=== PATIENT | female | born 1990 | race Caucasian/White ===

== ENCOUNTER → 2016-04-23 | Outpatient (REF) | payer OTHER | LOC: M SFHCWAGY 11:16 | PROVIDERS: ATTEND Nurse Practitioner Family | DX: Z12.4 Encounter for screening for malignant neoplasm of cervix (principal) ==

== ENCOUNTER → 2016-06-18 | Outpatient (REF) | payer OTHER | LOC: M SFHCCLAY 16:21 | PROVIDERS: ATTEND Family Medicine | DX: J02.9 Acute pharyngitis, unspecified (principal) ==

== ENCOUNTER → 2017-06-03 | Outpatient (REF) | payer OTHER | LOC: M LAB REF 17:12 | DX: Z34.83 Encounter for supervision of other normal pregnancy, third trimester (principal) | CPT/HCPCS: 87081 ==

== ENCOUNTER 2017-06-13 16:17 | Outpatient (CLI) | payer OTHER | END 2017-06-13 17:10 | disposition home or self-care (01) | LOC: M LDO 16:17 | DX: O47.1 False labor at or after 37 completed weeks of gestation (principal); Z3A.38 38 weeks gestation of pregnancy | CPT/HCPCS: 59025 ==

== ENCOUNTER 2017-06-22 06:49 | Inpatient (IN) | payer OTHER ==
[2017-06-22 08:31] LABS: HEMATOCRIT 34.3 % (36.0-47.0); HEMOGLOBIN 12.2 g/dl (12.0-15.5); MEAN CORPUSCULAR HEMOGLOBIN 32.6 pg (27.0-33.0); MEAN CORPUSCULAR HGB CONC 35.6 g/dl (32.0-36.5); MEAN CORPUSCULAR VOLUME 91.7 fl (80.0-96.0); PLATELET COUNT, AUTOMATED 174 10^3/uL (150-450); RED BLOOD COUNT 3.74 10^6/uL (4.00-5.40); RED CELL DISTRIBUTION WIDTH 12.3 % (11.5-14.5); WHITE BLOOD COUNT 8.7 10^3/uL (4.0-10.0)
[2017-06-22] MEDS: miSOPROStol 50 MCG 1/2 TAB (S0191) PO ×2 (08:33→12:51)
[2017-06-22 11:16] LABS: BEDSIDE GLUCOSE 89 MG/DL (70-105)
[2017-06-22 15:43] LABS: BEDSIDE GLUCOSE 103 MG/DL (70-105)
[2017-06-22] MEDS ORDERED: OXYTOCIN DRIP 30 UNITS in APPROPRIATE DILUENT 1 EA IV (17:00)
[2017-06-22] MEDS: LR 1,000 ML IV (17:41)
[2017-06-22] MEDS ORDERED: FENTANYL 2MCG/ML ROPIVACAINE 0.2% IN 0.9% NACL 200ML IVBAG As Ordered (18:09)
[2017-06-22] MEDS: OXYTOCIN DRIP 30 UNITS in APPROPRIATE DILUENT 1 EA IV ×2 (19:59→20:30)
[2017-06-22] MEDS ORDERED: diphenhydrAMINE INJ 50MG/ML VIAL (J1200) IV (20:15)
[2017-06-22] MEDS ORDERED: EPIDURAL/PCA KEYS XX (20:15)
[2017-06-22] MEDS ORDERED: EPIDURAL COMMENT XX (20:15)
[2017-06-22] MEDS: miSOPROStol 200 MCG TAB (S0191) PR (20:15)
[2017-06-22] MEDS: METHYLERGONOVINE MALEATE 0.2 MG/ML VIAL (J2210) IM (20:15)
[2017-06-22] MEDS ORDERED: FENTANYL/ROPIVACAINE/NACL BAG 200 ML EPIDURAL (20:15)
[2017-06-22] MEDS ORDERED: ONDANSETRON 4MG/2ML VIAL (J2405) IV (20:15)
[2017-06-22] MEDS ORDERED: REFRIGERATOR IV KEYS XX (20:15)
[2017-06-22] MEDS ORDERED: NALOXONE INJ 0.4 MG/1 ML VIAL (J2310) IV (20:15)
[2017-06-22] MEDS ORDERED: RHOGAM 300 MCG (1500 IU) INJ (J2790) IM (21:00)
[2017-06-22] MEDS ORDERED: ACETAMINOPHEN 500 MG TAB PO (21:00)
[2017-06-22] MEDS ORDERED: MEASLES,MUMPS,RUBELLA VACCINE INJ (MMR-II) (90707) SC (21:00)
[2017-06-22] MEDS ORDERED: DIBUCAINE 1% OINTMENT 30GM TOP (21:00)
[2017-06-22] MEDS ORDERED: DOCUSATE SODIUM 100 MG CAP PO (21:00)
[2017-06-22] MEDS ORDERED: ANUSOL HC CREAM 30GM TOP (21:00)
[2017-06-22] MEDS ORDERED: MOM 30ML SUSPENSION UDC PO (21:00)
[2017-06-22] MEDS: IBUPROFEN 800 MG TAB PO (21:10)
[2017-06-23] MEDS ORDERED: METHYLERGONOVINE MALEATE 0.2 MG TAB PO (01:00)
[2017-06-23] MEDS: PRENATAL VITAMINS CHEWABLE TABLET PO (09:00)
[2017-06-23] MEDS: IBUPROFEN 800 MG TAB PO (18:11)
[2017-06-24] MEDS: PRENATAL VITAMINS CHEWABLE TABLET PO (07:58)
== END 2017-06-24 11:05 | disposition home or self-care (01) | DRG 774 ==
LOC: M LDI 06:49 → M OBS 22:17
PROVIDERS: Obstetrics & Gynecology
PROC: 10E0XZZ Delivery of Products of Conception, External Approach (ICD-10-PCS; principal; 2017-06-22)
PROC: 3E0DXGC Introduction of Other Therapeutic Substance into Mouth and Pharynx, External Approach (ICD-10-PCS; 2017-06-22)
DX: O24.429 Gestational diabetes mellitus in childbirth, unspecified control (principal); O72.1 Other immediate postpartum hemorrhage; Z37.0 Single live birth; Z3A.39 39 weeks gestation of pregnancy

== ENCOUNTER → 2018-04-18 | Outpatient (REF) | payer OTHER ==
[~2018-04-18] MED LIST: IBUP-1114 PO; MAPA500T2 PO; PRENTAB9 PO
== END ==
LOC: M LAB REF 17:34
PROVIDERS: ATTEND Obstetrics & Gynecology
DX: Z12.4 Encounter for screening for malignant neoplasm of cervix (principal)

== ENCOUNTER 2018-07-19 10:08 | Emergency (ER) | payer OTHER ==
[~2018-07-19] VITALS: Ht 167.6 cm; Wt 58.6 kg
[~2018-07-19 10:08] MED LIST changes: -24Hr Holter Monitor XX; -PREVTAB2
[2018-07-19] MEDS ORDERED: PREVTAB2 (10:16)
[2018-07-19 11:07] LABS: HEMATOCRIT 36.9 % (36.0-47.0); HEMOGLOBIN 12.3 g/dl (12.0-15.5); MEAN CORPUSCULAR HEMOGLOBIN 30.1 pg (27.0-33.0); MEAN CORPUSCULAR HGB CONC 33.3 g/dl (32.0-36.5); MEAN CORPUSCULAR VOLUME 90.2 fl (80.0-96.0); PLATELET COUNT, AUTOMATED 234 10^3/uL (150-450); RED BLOOD COUNT 4.09 10^6/uL (4.00-5.40); WHITE BLOOD COUNT 5.2 10^3/uL (4.0-10.0)
[2018-07-19 11:31] LABS: HCG, SERUM QUALITATIVE NEGATIVE (NEGATIVE)
[2018-07-19 11:36] LABS: BLOOD UREA NITROGEN 9 MG/DL (7-18); CALCIUM LEVEL 9.2 MG/DL (8.5-10.1); CARBON DIOXIDE LEVEL 25 MEQ/L (21-32); CHLORIDE LEVEL 109 MEQ/L (98-107); CREATININE FOR GFR 0.73 MG/DL (0.55-1.30); GLOMERULAR FILTRATION RATE > 60.0 (>60); GLUCOSE, FASTING 100 MG/DL (70-100); POTASSIUM SERUM 3.9 MEQ/L (3.5-5.1); SODIUM LEVEL 141 MEQ/L (136-145)
[2018-07-19] MEDS ORDERED: ISOVUE-370 76% 100ML VIAL (Q9967) As Ordered ONE (11:55)
--- NOTE | 2018-07-19 13:37 | REP ---
Clinical: Acute chest pain and tachycardia. Technique: Axial contrast enhanced images from the thoracic inlet to the upper abdomen using 100 ml Isovue 370 intravenous contrast material with coronal and sagittal re-formations. Findings: Satisfactory enhancement of the pulmonary vasculature is achieved and no filling defects are identified to suggest pulmonary embolus. Thoracic aorta is normal caliber without aneurysm or dissection. Heart and pericardium are normal. Bilateral lung antonio are well aerated and clear without acute pulmonary parenchymal consolidation or atelectasis. No nodule or mass lesion. No pleural effusion/reaction. No pneumothorax. No adenopathy. Impression: No evidence for pulmonary embolus. No acute pleuroparenchymal or mediastinal process. Electronically Signed by Jeff Dahl MD 07/19/2018 01:29 P
[2018-07-19] MEDS ORDERED: 24Hr Holter Monitor XX (13:59)
[2018-07-19 14:15] VITALS: BP 106/58
--- NOTE | 2018-07-19 19:40 | ECGEPIP ---
[facility] - ED Test Date: 2018-07-19 Pat Name: LISSY NAVA Department: Room: - Gender: Female Gage Designer: : 1990 Requested By: Ariel Swain Order Number: [id number] Reading MD: Goran Gunn Measurements Intervals [place] Rate: 94 P: 45 NH: 141 QRS: 64 QRSD: 92 T: 18 QT: 348 QTc: 437 Interpretive Statements SINUS RHYTHM WITH SINUS ARRHYTHMIA Low QRS complex voltage in the limb leads Nonspecific ST-T wave abnormalities Comparison tracing not on file Electronically Signed on 07-19-2018 19:39:54 EDT by Goran Gunn
== END 2018-07-19 14:42 | disposition home or self-care (01) ==
LOC: M ED 10:08
DX: R00.2 Palpitations (principal); F41.9 Anxiety disorder, unspecified; F42.9 Obsessive-compulsive disorder, unspecified; Z79.3 Long term (current) use of hormonal contraceptives
CPT/HCPCS: 71275; 80048; 84443; 84703; 85027; 93005; 99284; Q9967

== ENCOUNTER → 2018-07-19 | Outpatient (CLI) | payer OTHER ==
[~2018-07-19] MED LIST changes: +24Hr Holter Monitor XX; +PREVTAB2
--- NOTE | 2018-07-23 13:04 | HOLTMON ---
[facility] Test Date: 2018-07-19 Pat Name: LISSY NAVA Department: Room: - Gender: Female Strategic Communications Manager: Alise Casey/MARGARITA CUEVA : 1990 Requested By: Ariel Swain Order Number: [id number] Reading MD: Linwood Hayes Interpretive Statements Patient was monitored for 24hours and 50 minutes starting on 07/19/18. 23 hours and 38 minutes were usable for analysis. Baseline mechanism was sinus rhythm with normal AV conduction and narrow QRS complex. Minimum HR was 57 bpm, average HR 82 bpm and maximum HR 145 bpm. There were no pauses, no PVC's, 1 PAC and no episodes of a atrial fibrillation. Patient reported 4 episodes of "dizziness and palpitations" corresponding to sinus rhythm or sinus tachycardia (max. HR 120 bpm). Normal Holter monitor. No correlation of symptoms with arrhythmias. Electronically Signed on 07-23-2018 13:04:35 EDT by Linwood Hayes
== END ==
LOC: M EKG 14:47
PROVIDERS: ATTEND Emergency Medicine
DX: R00.2 Palpitations (principal)

== ENCOUNTER → 2019-05-22 | Outpatient (REF) | payer OTHER ==
[~2019-05-22] MED LIST changes: +24Hr Holter Monitor XX; +PREVTAB2
[2019-05-22 11:40] LABS: THYROXINE (T4) 9.5 UG/DL (4.5-12.0); TOTAL T3 96.8 NG/DL (60.0-181.0)
[2019-05-23 11:05] LABS: THYROID PEROXIDASE ANTIBODY < 28.0 U/ML (<60.0)
== END ==
LOC: M SFHCCLAY 07:51
PROVIDERS: ATTEND Family Medicine
DX: R79.89 Other specified abnormal findings of blood chemistry (principal)

== ENCOUNTER → 2020-01-16 | Outpatient (CLI) | payer OTHER ==
--- NOTE | 2020-01-16 09:47 | REP ---
INDICATION: ANATOMY COMPARISON: None. TECHNIQUE: Transabdominal obstetrical ultrasound with color Doppler evaluation. FINDINGS: Examination demonstrates a single live intrauterine in cephalic presentation. motion is identified by technologist. Placenta is noted anterior and grade 1 without evidence for placenta previa or abruption. Amniotic fluid volume is normal. Cervix measures 4.9 cm in length and appears closed.. Gestational age by LMP 20 weeks 3 days with MATTHEW 06/01/2020. Gestational age by current measurements 21 weeks 2 days with MATTHEW 05/26/2020. FHR equals 163 beats per minute. BPD: 5.1 cm 21 weeks 3 days HC: 18.7 cm 21 weeks 0 days AC: 16.2 cm 21 weeks 2 days FL: 3.6 cm 21 weeks 3 days HL: 3.3 cm 21 weeks 2 days HC/AC: 1.15 Estimated weight 413 grams (89thpercentile). Anatomical assessment demonstrates normal structures including cranium, choroid plexus, cavum, cerebellum/posterior fossa, facial features, lungs, four-chamber heart/ventricular outflow tracts, diaphragm, stomach, cord insertion/three-vessel cord, kidneys/bladder, spine, and extremities. IMPRESSION: Single live intrauterine in cephalic presentation demonstrating appropriate estimated weight. Anatomical assessment is complete and normal. <Electronically signed by Jeff Dahl > 01/16/20 [id number]
== END ==
LOC: M WHC 08:36
PROVIDERS: ATTEND Advanced Practice Midwife
DX: O09.291 Supervision of pregnancy with other poor reproductive or obstetric history, first trimester (principal); Z3A.20 20 weeks gestation of pregnancy

== ENCOUNTER → 2020-05-08 | Outpatient (REF) | payer OTHER | LOC: M PLALAB 13:32 | PROVIDERS: ATTEND Obstetrics & Gynecology | DX: Z3A.36 36 weeks gestation of pregnancy (principal) ==

== ENCOUNTER → 2020-05-22 | Outpatient (REF) | payer OTHER ==
[2020-05-22 13:53] LABS: HEMATOCRIT 34.1 % (36.0-47.0); HEMOGLOBIN 10.7 g/dl (12.0-15.5); MEAN CORPUSCULAR HEMOGLOBIN 28.6 pg (27.0-33.0); MEAN CORPUSCULAR HGB CONC 31.4 g/dl (32.0-36.5); MEAN CORPUSCULAR VOLUME 91.2 fl (80.0-96.0); PLATELET COUNT, AUTOMATED 202 10^3/uL (150-450); RED BLOOD COUNT 3.74 10^6/uL (4.00-5.40); WHITE BLOOD COUNT 9.3 10^3/uL (4.0-10.0)
[2020-05-22 14:05] LABS: ALT/SGPT 17 U/L (12-78); BILIRUBIN,TOTAL 0.4 MG/DL (0.2-1.0); CREATININE FOR GFR 0.58 MG/DL (0.55-1.30); GLOMERULAR FILTRATION RATE > 60.0 (>60); LDH LACTATE DEHYDROGENASE 184 U/L (84-246); URIC ACID 3.1 MG/DL (2.6-6.0)
[2020-05-22 14:29] LABS: CREATININE,RANDOM URINE 20.9 MG/DL; TOTAL PROTEIN,RANDOM URINE 6.3 MG/DL (0.0-12.0)
== END ==
LOC: M PLALAB 11:49
PROVIDERS: ATTEND Advanced Practice Midwife
DX: O12.03 Gestational edema, third trimester (principal)

== ENCOUNTER 2020-05-25 10:03 | Inpatient (IN) | payer OTHER ==
[2020-05-25] VITALS (32 sets, daily range): BP systolic 113–148; BP diastolic 61–84
[~2020-05-25] VITALS: Ht 167.6 cm; Wt 80.0 kg
[2020-05-25] MEDS ORDERED: METHYLERGONOVINE MALEATE 0.2 MG/ML VIAL (J2210) IM PRN (10:25)
[2020-05-25] MEDS ORDERED: TRANEXAMIC ACID INJection 1,000 MG in NS 100 ML IV PRN (10:25)
[2020-05-25] MEDS ORDERED: LIDOCAINE 1% MDV 20ML VIAL INFIL PRN (10:25)
[2020-05-25] MEDS ORDERED: CARBOPROST TROMETHAMINE 250 MCG/ML AMP IM PRN (10:25)
[2020-05-25] MEDS ORDERED: OXYTOCIN DRIP 30 UNITS in IV 1 EA IV PRN ×6 (10:25)
[2020-05-25] MEDS ORDERED: OXYTOCIN INJ 10 UNITS/ML VIAL (J2590) IV PRN (10:25)
[2020-05-25] MEDS ORDERED: OXYTOCIN INJ 10 UNITS/ML VIAL (J2590) IM PRN (10:25)
[2020-05-25] MEDS ORDERED: LACTATED RINGER'S 1000 ML IV STA (10:25)
[2020-05-25] MEDS ORDERED: PRENTAB9 PO (10:31)
--- NOTE | 2020-05-25 10:44 | HPEPDOC ---
Obstetrical History & Physical General Date of Admission May 25, 2020 at 10:03 History of Present Illness 29-year-old at 39+0 weeks gestation. Presents for an induction of labor. Indication for induction: Elective She denies vaginal bleeding, loss of fluid or painful, frequent uterine contractions. She reports regular movement. She denies headache, visual changes, right upper quadrant pain, shortness of breath or chest pain. course: Uncomplicated PMH: Anxiety, OCD SH:,[place]green teeth, local excision from left pinna/ear Meds: vitamin All: NKDA SOCIETY EDITOR: No STI or dysplasia OB: Term at 39 weeks, 7 lbs. 1 oz., complicated by GDM (2018) Sochx: No tobacco, alcohol or drug use FamHx: Psych/anxiety, hypertension, hyperlipidemia labs: Blood type A+, antibody screen negative, HepBsAg neg, HIV neg, rubella immune, Hep C antibody negative, RPR nonreactive, CT/GC neg, urine culture negative, 1 hour glucose challenge test wnl , GBS negative Imaging: no placental abnormalities or anomalies Past Medical History Allergies Coded Allergies: No Known Allergies (Unverified , 07/19/18) Medications Miscellaneous Medications Norgestimate-Ethinyl Estradiol (Previfem Tablet) 1 Each Tablet Physical Examination Physical Examination GENERAL: Alert and oriented times three. BREAST: . ABDOMEN: Gravid and non-tender to touch. FETUS: Is vertex (VTX) by sterile vaginal examination (SVE), fetus is vertex ( VTX) by John. HEART RATE: Regular rate and rhythm. LUNGS: Clear to auscultation (CTA). EXTREMITIES: No edema. No clonus. SVE: 4/75%/-3, cephalic, intact membranes. EFM: Cat I [place]: irreg ctxs Assessment/Plan Assessment 29yo at 39+0 weeks. Reassuring maternal and status. Elective IOL; favorable cervix. Plan Admit and orient. Frog Shaker and consent. Group B Streptococcus (GBS) negative Labs and intravenous (IV) per unit protocol. Counseled on induction of labor (IOL); Pitocin low dose protocol Anticipate [normal spontaneous delivery ()]. C-S as appropriate. NAFISA PEREZ DO May 25, 2020 10:44
[2020-05-25] MEDS ORDERED: OXYTOCIN DRIP 30 UNITS in IV 1 EA IV SCH ×2 (10:45→21:49)
[2020-05-25 11:40] LABS: HEMATOCRIT 32.6 % (36.0-47.0); HEMOGLOBIN 10.4 g/dl (12.0-15.5); MEAN CORPUSCULAR HEMOGLOBIN 28.5 pg (27.0-33.0); MEAN CORPUSCULAR HGB CONC 31.9 g/dl (32.0-36.5); MEAN CORPUSCULAR VOLUME 89.3 fl (80.0-96.0); PLATELET COUNT, AUTOMATED 195 10^3/uL (150-450); RED BLOOD COUNT 3.65 10^6/uL (4.00-5.40); WHITE BLOOD COUNT 7.8 10^3/uL (4.0-10.0)
[2020-05-25] MEDS: LR 1,000 ML IV SCH ×2 (11:45→15:07)
[2020-05-25] MEDS ORDERED: FENTANYL 2MCG/ML ROPIVACAINE 0.2% IN 0.9% NACL 100ML IVBAG As Ordered ONE (18:21)
--- NOTE | 2020-05-25 19:54 | IPNPDOC ---
Obstetrical Progress Note Date of Service May 25, 2020 Subjective Patient is comfortable with epidural. No LOF/VB Objective Vital Signs Date Time Temp Pulse Resp B/P (MAP) Pulse Ox O2 Delivery O2 Flow Rate FiO2 05/25/20 17:09 80 18 128/64 (85) 05/25/20 15:07 98.9 Assessment Heart Rate Tracing: Category I Tocometer Contractions: Yes Frequency: every 2-5 min. (Pit at 6mU/min) Sterile Vaginal Examination Dilation: 5 cm Effacement (%): 80% Station: -2 Cervical Consistency: Soft Cervical Position: Anterior (AROM, clear) Postion/Presentation: Cephalic presentation Assessment and Plan Status: Reassuring Anticipate: Vaginal Delivery Additional Comments Early active labor. Reassuring maternal and status. Good pain control. AROM , clear. -Continue NAFISA Mae DO May 25, 2020 19:54
[2020-05-25] MEDS ORDERED: LACTATED RINGER'S 1000 ML IV PRN (20:00)
[2020-05-25] MEDS ORDERED: ONDANSETRON 4MG/2ML VIAL IV PRN (20:00)
[2020-05-25] MEDS ORDERED: ePHEDrine SULFATE 25 MG/5 ML(5MG/ML) SYRINGE IV PRN (20:00)
[2020-05-25] MEDS ORDERED: NALOXONE INJ 0.4MG/1ML VIAL (J2310 PER 1MG) IV PRN (20:00)
[2020-05-25] MEDS ORDERED: REFRIGERATOR IV KEYS XX PRN (20:00)
[2020-05-25] MEDS ORDERED: EPIDURAL COMMENT XX SCH (20:00)
[2020-05-25] MEDS ORDERED: EPIDURAL/PCA KEYS XX PRN (20:00)
[2020-05-25] MEDS ORDERED: diphenhydrAMINE 50MG/ML VIAL (J1200) IV PRN (20:00)
[2020-05-25] MEDS ORDERED: FENTANYL/ROPIVACAINE/NACL BAG 100 ML EPIDURAL SCH (20:00)
[2020-05-25] MEDS ORDERED: LR 1,000 ML IV SCH (21:49)
[2020-05-25] MEDS ORDERED: IBUPROFEN 600MG TAB PO PRN (21:50)
[2020-05-25] MEDS ORDERED: ACETAMINOPHEN 500 MG TAB PO PRN (21:50)
[2020-05-25] MEDS ORDERED: MEASLES,MUMPS,RUBELLA VACCINE INJ (MMR-II) (90707) SC SCH (21:50)
[2020-05-25] MEDS ORDERED: DIBUCAINE 1% OINTMENT 30GM TOP PRN (21:50)
[2020-05-25] MEDS ORDERED: IBUPROFEN 800 MG TAB PO PRN (21:50)
[2020-05-25] MEDS ORDERED: DOCUSATE SODIUM 100MG CAPSULE PO PRN (21:50)
[2020-05-25] MEDS ORDERED: RHOGAM 300 MCG (1500 IU) INJ (J2790) IM SCH (21:50)
--- NOTE | 2020-05-25 21:58 | DNPDOC ---
[facility] Delivery Note Delivery Note DATE OF DELIVERY: 05/25/2020 TIME OF DELIVERY: 2128 Spontaneous vaginal delivery. NUCLEAR CRITICALITY SAFETY ENGINEER: Dr. Dae Ogden DO FACOG ANESTHESIA: Epidural LACERATION: None ESTIMATED BLOOD LOSS:. 200 mL. FINDINGS: 9 pound 3 ounce (4170g) male , Score, 6 and 9. DELIVERY SUMMARY: The active phase and second stage of labor progressed in normal fashion. She received Pitocin augmentation throughout her labor course. The head delivered in the GAYATRI position, and restituted LOT. No nuchal cord was noted. The anterior shoulder delivered with gentle downward guidance and the remainder of the body delivered with ease. The baby was placed on the patient's chest. Delayed cord clamping occurred for approximately 1 minute. The cord was then doubly clamped and cut. IV Pitocin was bolused to actively manage the third stage of labor. The placenta delivered intact without any difficulty within 10 minutes of delivery. The uterine fundus was noted to be firm and 2 cm below the umbilicus. The cervix, vagina, vulva and perineum were inspected. No lacerations. Excellent hemostasis was noted. Sponge, needle and instrument counts were correct per protocol. DO NYLA Valencia JONATHAN R. DO May 25, 2020 21:57
[2020-05-26 00:10] VITALS: BP 131/75
[2020-05-26 06:00] VITALS: BP 118/55
[2020-05-26] MEDS: ACETAMINOPHEN TAB 650MG DOSE (2X325MG) PO PRN ×2 (06:26→18:25)
--- NOTE | 2020-05-26 07:14 | IPNPDOC ---
Progress Note Date of Service: May 26, 2020 Day#: 1 Progress Note SUBJECT: Status post . She has been ambulating, voiding spontaneously without issue and tolerating regular diet. Lochia decreasing/minimal. Pain is well-controlled. Denies headache, visual changes, right upper quadrant pain, shortness breath or chest pain. OBJECTIVE: VITAL SIGNS: Within normal limits, afebrile. Alert and oriented times three. Abdomen: Fundus firm at U-2. Soft, NTTP. ASSESSMENT: Status post uncomplicated spontaneous vaginal delivery. Vitals within normal limits, afebrile, hemodynamically stable with no evidence of infection. PLAN: Discharge to home today. Tylenol and Motrin for pain. Routine instructions/precautions reviewed. Routine PP visit in 6 weeks in clinic. Judy Ogden DO VS, I&O, 24H, Delfina Vital Signs/I&O Vital Signs Date Time Temp Pulse Resp B/P (MAP) Pulse Ox O2 Delivery O2 Flow Rate FiO2 05/26/20 06:00 98.5 73 14 118/55 (76) 05/26/20 00:10 Room Air I&O- Last 24 Hours up to 6 AM 05/26/20 06:00 Intake Total 3823 ml Output Total 1650 ml Balance 2173 ml Laboratory Data 24H LABS Laboratory Tests 2 05/25/20 11:16: Serology Scanned Report Hepatitis B Testing 05/25/20 11:21: 05/25/20 11:22: Nucleated Red Blood Cells % (auto) 0.0 CBC/BMP Laboratory Tests 05/25/20 11:22 NAFISA OGDEN DO May 26, 2020 07:14
[2020-05-26] MEDS: PRENATAL VITAMINS CHEWABLE TABLET PO SCH (09:26)
[2020-05-26 18:00] VITALS: BP 118/62
[2020-05-27 05:43] VITALS: BP 118/63
[2020-05-27] MEDS: PRENATAL VITAMINS CHEWABLE TABLET PO SCH (08:20)
== END 2020-05-27 10:55 | disposition home or self-care (01) | DRG 807 ==
LOC: M LDI 10:03 → M OBS 05-26 00:05
PROVIDERS: ADMIT Obstetrics & Gynecology; ATTEND Obstetrics & Gynecology
PROC: 10E0XZZ Delivery of Products of Conception, External Approach (ICD-10-PCS; principal; 2020-05-25)
PROC: 3E033VJ Introduction of Other Hormone into Peripheral Vein, Percutaneous Approach (ICD-10-PCS; 2020-05-25)
DX: O80 Encounter for full-term uncomplicated delivery (principal); Z37.0 Single live birth; Z3A.39 39 weeks gestation of pregnancy

== ENCOUNTER → 2020-08-13 | Outpatient (REF) | payer OTHER | LOC: M SFHCWAGY 09:57 | PROVIDERS: ATTEND Advanced Practice Midwife | DX: Z12.4 Encounter for screening for malignant neoplasm of cervix (principal) | CPT/HCPCS: 87624; G0123 ==

== ENCOUNTER → 2022-04-30 | Outpatient (REF) | payer OTHER ==
[2022-04-30 17:16] LABS: BASO # 0.1 10^3/uL (0.0-0.2); BASO % 0.8 % (0.0-1.0); EOS # 0.1 10^3/uL (0.0-0.5); HEMATOCRIT 36.2 % (36.0-47.0); HEMOGLOBIN 12.1 g/dl (12.0-15.5); LYMPH # 2.7 10^3/uL (1.5-5.0); LYMPH % 28.9 % (24.0-44.0); MEAN CORPUSCULAR HEMOGLOBIN 31.8 pg (27.0-33.0); MEAN CORPUSCULAR HGB CONC 33.4 g/dl (32.0-36.5); MONO # 0.5 10^3/uL (0.0-0.8); MONO % 5.9 % (2.0-8.0); NEUTROPHILS # 5.8 10^3/uL (1.5-8.5); NEUTROPHILS % 63.2 % (36.0-66.0); PLATELET COUNT, AUTOMATED 258 10^3/uL (150-450); RED BLOOD COUNT 3.81 10^6/uL (4.00-5.40); WHITE BLOOD COUNT 9.2 10^3/uL (4.0-10.0)
[2022-04-30 17:43] LABS: FREE T4 1.04 NG/DL (0.89-1.76); TOTAL T3 99.4 NG/DL (60.0-181.0)
[2022-04-30 17:44] LABS: ALBUMIN 4.1 G/DL (3.2-5.2); ALKALINE PHOSPHATASE 43 U/L (46-116); ALT/SGPT 42 U/L (7.0-40); AST/SGOT 32 U/L (<34); BILIRUBIN,TOTAL 0.6 MG/DL (0.3-1.2); BLOOD UREA NITROGEN 11 MG/DL (9-23); CALCIUM LEVEL 9.8 MG/DL (8.5-10.1); CARBON DIOXIDE LEVEL 29 MMOL/L (20-31); CHLORIDE LEVEL 102 MMOL/L (98-107); CREATININE FOR GFR 0.71 MG/DL (0.55-1.30); GLOMERULAR FILTRATION RATE > 60.0 (>60); GLUCOSE, FASTING 100 MG/DL (60-100); POTASSIUM SERUM 4.3 MMOL/L (3.5-5.1); SODIUM LEVEL 138 MMOL/L (136-145); TOTAL PROTEIN 6.9 G/DL (5.7-8.2)
[2022-04-30 17:54] LABS: HEMOGLOBIN A1c 5.2 % (4.0-6.0)
[2022-04-30 18:06] LABS: THYROID STIMULATING HORMONE 1.138 uIU/ML (0.55-4.78)
== END ==
LOC: M SFHCCLAY 13:57
PROVIDERS: ATTEND Family Medicine
DX: R79.89 Other specified abnormal findings of blood chemistry (principal); Z86.32 Personal history of gestational diabetes

== ENCOUNTER → 2023-05-06 | Outpatient (REF) | payer OTHER ==
[2023-05-06 18:17] LABS: ALKALINE PHOSPHATASE 40 U/L (46-116); ALT/SGPT < 9 U/L (7.0-40); AST/SGOT 16 U/L (<34); BILIRUBIN,TOTAL 0.5 MG/DL (0.3-1.2); BLOOD UREA NITROGEN 14 MG/DL (9-23); CALCIUM LEVEL 9.5 MG/DL (8.5-10.1); CARBON DIOXIDE LEVEL 27 MMOL/L (20-31); CHLORIDE LEVEL 103 MMOL/L (98-107); CREATININE FOR GFR 0.63 MG/DL (0.55-1.30); GLOMERULAR FILTRATION RATE > 60.0 (>60); GLUCOSE, FASTING 97 MG/DL (60-100); POTASSIUM SERUM 4.7 MMOL/L (3.5-5.1); SODIUM LEVEL 136 MMOL/L (136-145)
[2023-05-06 18:20] LABS: FREE T4 1.02 NG/DL (0.89-1.76)
[2023-05-06 18:21] LABS: TOTAL T3 127.6 NG/DL (60.0-181.0)
[2023-05-06 18:22] LABS: THYROID STIMULATING HORMONE 1.836 uIU/ML (0.55-4.78)
== END ==
LOC: M SFHCCLAY 14:43
PROVIDERS: ATTEND Family Medicine
DX: R79.89 Other specified abnormal findings of blood chemistry (principal); Z86.32 Personal history of gestational diabetes

== ENCOUNTER → 2024-05-07 | Outpatient (REF) | payer OTHER ==
[2024-05-07 16:48] LABS: BASO # 0.1 10^3/uL (0.0-0.2); BASO % 0.5 % (0.0-1.0); EOS % 0.2 % (0.0-3.0); HEMATOCRIT 37.1 % (36.0-47.0); HEMOGLOBIN 12.3 g/dl (12.0-15.5); LYMPH # 1.1 10^3/uL (1.5-5.0); LYMPH % 11.7 % (24.0-44.0); MEAN CORPUSCULAR HGB CONC 33.2 g/dl (32.0-36.5); MEAN CORPUSCULAR VOLUME 96.6 fl (80.0-96.0); MONO # 0.6 10^3/uL (0.0-0.8); NEUTROPHILS # 7.6 10^3/uL (1.5-8.5); NEUTROPHILS % 81.3 % (36.0-66.0); PLATELET COUNT, AUTOMATED 228 10^3/uL (150-450); RED BLOOD COUNT 3.84 10^6/uL (4.00-5.40); WHITE BLOOD COUNT 9.3 10^3/uL (4.0-10.0)
[2024-05-07 16:57] LABS: ALBUMIN 4.1 G/DL (3.2-5.2); ALKALINE PHOSPHATASE 66 U/L (35-104); ALT/SGPT 17 U/L (7.0-40); AST/SGOT 11 U/L (<34); BILIRUBIN,TOTAL 1.1 MG/DL (0.3-1.2); BLOOD UREA NITROGEN 9 MG/DL (9-23); CALCIUM LEVEL 9.3 MG/DL (8.5-10.1); CARBON DIOXIDE LEVEL 27 MMOL/L (20-31); CHLORIDE LEVEL 104 MMOL/L (98-107); CREATININE FOR GFR 0.63 MG/DL (0.55-1.30); GLOMERULAR FILTRATION RATE > 60.0 (>60); GLUCOSE, FASTING 112 MG/DL (60-100); POTASSIUM SERUM 4.2 MMOL/L (3.5-5.1); SODIUM LEVEL 140 MMOL/L (136-145); TOTAL PROTEIN 7.1 G/DL (5.7-8.2)
[2024-05-07 16:58] LABS: FREE T4 1.14 NG/DL (0.89-1.76)
[2024-05-07 16:59] LABS: THYROID STIMULATING HORMONE 0.928 uIU/ML (0.55-4.78)
[2024-05-07 17:04] LABS: HEMOGLOBIN A1c 4.6 % (4.0-6.0)
== END ==
LOC: M SFHCCLAY 13:22
PROVIDERS: ATTEND Family Medicine
DX: R10.2 Pelvic and perineal pain (principal); R79.89 Other specified abnormal findings of blood chemistry; Z86.32 Personal history of gestational diabetes; N13.30 Unspecified hydronephrosis